=== PATIENT | female | born 1990 | race Caucasian/White ===

== ENCOUNTER 2017-05-12 07:26 | Emergency (ER) | payer OTHER, MEDICAID ==
[~2017-05-12] VITALS: Ht 157.5 cm; Wt 68.5 kg
[2017-05-12 07:31] VITALS: Ht 157.5 cm; Wt 68.5 kg
--- NOTE | 2017-05-12 07:40 | ERD ---
ER Documentation Chief Complaint Date/Time DATE: 05/12/17 TIME: 07:38 Chief Complaint RIGHT HAND PAIN/INJURY HPI 26-year-old female who is right-hand dominant presents with right-sided fourth and fifth metacarpal pain that occurred last night after punching a wall. Patient's pain and swelling is at the lateral aspect of the right hand, she has pain with movement and achy pain that is localized, no pain noted at rest. She denies paresthesias or weakness. ROS All systems reviewed and are negative except as per history of present illness. Allergies Allergies: Coded Allergies: ibuprofen (Verified Allergy, Mild, rash, 05/12/17) PMhx/Soc Medical and Surgical Hx: pt denies Medical Hx History of Surgery: Yes (Tubal ligation, 2) Hx Alcohol Use: No Hx Substance Use: No Hx Tobacco Use: No Physical Exam Vitals Vital Signs Date Time Temp Pulse Resp B/P Pulse Ox O2 Delivery O2 Flow Rate FiO2 05/12/17 07:31 98.1 88 18 106/63 99 Physical Exam General: Well-developed, well-nourished. The patient appears in no acute distress. HEENT: Head is normocephalic, atraumatic. No scleral icterus. Neck: Supple. Nontender. Lungs: Clear to auscultation. Normal air movement. Heart: Regular rate and rhythm. S1 and S2 are normal. No murmurs, gallops, or rubs. Abdomen: Nondistended. Extremities: Patient has swelling at the right fifth metacarpal, she is able to make a fist. She has full range of motion at the DIP, PIP and MCP joints of the right fourth and fifth digits. Capillary refill less than 2 seconds. No tenderness or bony deformities over the wrist, no snuffbox tenderness. Neurologic: Alert and oriented 3. No focal deficits. Normal speech and gait. Skin: Normal turgor. No rash or lesions. Results 24 hrs Current Medications Medications (Trade) Dose Ordered Sig/Jon Route PRN Reason Start Time Stop Time Status Last Admin Dose Admin Acetaminophen (Tylenol Tab) 650 mg ONCE ONCE PO 05/12/17 08:00 05/12/17 08:01 DC 05/12/17 07:47 DIAGNOSTIC IMAGING REPORT Patient: AYAH SALCEDO : 1990 Age: 26 Sex: F MR #: [id number] DOS: 05/12/17 0736 Ordering MD: NICO GALLAGHER PA-C Location: [facility] Room/Bed: PROCEDURE: Right hand series CLINICAL INDICATION: Trauma TECHNIQUE: AP oblique and lateral views of the right hand were obtained. COMPARISON: No prior studies are available for comparison. FINDINGS: There is an acute fracture of the distal right fifth metacarpal bone with dorsal angulation. No evidence of other fracture or dislocation. The bony mineralization is normal. There are no foreign bodies. IMPRESSION: Right fifth distal metacarpal fracture as above. RPTAT:AAJJ Physician Jack Date Time Electronically viewed and signed by Debbie Latham Physician on 05/12/2017 08:07 BM/ CC: NICO GALLAGHER PA-C Procedures/MDM ED course: She was offered pain medication, she requested Tylenol at this time when she was given Tylenol 650 mg for pain. Medical decision making: This 26-year-old female comes in with right hand pain after punching a wall last night, coming in with an acute closed right fifth metacarpal fracture from trauma. No evidence of abrasion, laceration, patient denies hitting anybody. She states that she punched a wall. She is neurovascularly intact. X-rays were reviewed by my attending physician, Dr. Tipton who agrees that she may follow-up outpatient with orthopedics. Patient was advised that she needs follow-up with a hand surgeon. Departure Diagnosis: Primary Impression: Fracture of fifth metacarpal bone Condition: Good NICO GALLAGHER PA-C May 12, 2017 07:40
[2017-05-12] MEDS ORDERED: ACETAMINOPHEN 325 MG TAB PO ONE (08:00)
--- NOTE | 2017-05-12 08:08 | RADRPT ---
PROCEDURE: Right hand series CLINICAL INDICATION: Trauma TECHNIQUE: AP oblique and lateral views of the right hand were obtained. COMPARISON: No prior studies are available for comparison. FINDINGS: There is an acute fracture of the distal right fifth metacarpal bone with dorsal angulation. No gustavo dence of other fracture or dislocation. The bony mineralization is normal. There are no foreign laurie dies. IMPRESSION: Right fifth distal metacarpal fracture as above. RPTAT:AAJJ Physician Jack Date Time Electronically viewed and signed by Debbie Latham Physician on 05/12/2017 08:07 BM/
[2017-05-12] MEDS ORDERED: HYDR-906 PO (08:34)
== END 2017-05-12 08:46 | disposition home or self-care (01) ==
LOC: FTE 07:26
DX: S62.326A Displaced fracture of shaft of fifth metacarpal bone, right hand, initial encounter for closed fracture (principal); W22.8XXA Striking against or struck by other objects, initial encounter; Y92.9 Unspecified place or not applicable

== ENCOUNTER 2018-07-13 16:45 | Outpatient (CLI) | END 2018-07-13 17:15 | disposition home or self-care (01) ==

== ENCOUNTER 2018-07-13 17:23 | Emergency (ER) | END 2018-07-13 19:19 | disposition home or self-care (01) ==

== ENCOUNTER 2018-10-03 16:47 | Inpatient (IN) | payer OTHER ==
[~2018-10-03] VITALS: Ht 165.1 cm; Wt 87.0 kg
[~2018-10-03 16:47] MED LIST: OXYTOCIN 10 UNIT INJ ONE; PREN-93 PO
[2018-10-03] MEDS ORDERED: LACTATED RINGER'S 1,000 ML IV SCH (16:53)
[2018-10-03] MEDS ORDERED: CEFAZOLIN 2 GM/50 ML (PMX) 50 ML IVPB SCH (17:00)
[2018-10-03] MEDS ORDERED: AMPICILLIN 2 GM/NS (PMX) 100 ML IV SCH (17:00)
[2018-10-03] MEDS ORDERED: METHYLERGONOVINE 0.2 MG INJ IM PRN ×2 (17:00→21:30)
[2018-10-03] MEDS ORDERED: CARBOPROST 250 MCG INJ IM PRN ×2 (17:00→21:30)
[2018-10-03] MEDS ORDERED: MISOPROSTOL 200 MCG TAB PR PRN ×2 (17:00→21:30)
[2018-10-03] MEDS ORDERED: OXYTOCIN 30 UNITS/LR 500 ML IV SCH ×2 (17:00→21:16)
[2018-10-03] MEDS ORDERED: OXYTOCIN 30 UNITS/LR 500 ML IV PRN ×2 (17:00→21:30)
[2018-10-03 17:01] VITALS: Ht 165.1 cm; Wt 87.0 kg
[2018-10-03 17:02] VITALS: BP 130/69; PULSE 111; RESP 20
--- NOTE | 2018-10-03 17:14 | TRIAGE ---
OB Triage Datetime Report Generated by CPN: 10/03/2018 17:14 Datetime: 10/03/2018 17:11 Stage of : Labor Assessment Type: Admission Assessment Vaginal Bleeding: None Maternal Assessment Level of Consciousness: Fully Conscious DTR's/Clonus: DTRs 2+; No Clonus Headache: Denies Blurred Vision: No Respiratory Effort: Unlabored; Regular Rhythm; Equal Expansion Breath Sounds, Left: Clear and Equal Breath Sounds, Right: Clear and Equal Nausea/Vomiting: Denies RUQ Epigastric Pain: Denies Facial Edema: None Fall Risk Assessment History of Falling: (0) No Secondary Diagnosis: (0) No Ambulatory Aid: (0) Bedrest/Nurse Assist IV Therapy: (0) No Gait: (0) Normal/Bedrest/Immobile Mental Status: (0) Oriented to Own Ability Fall Score: 0 Fall Risk Score Definition: No Risk: No action required Labor Evaluation Frequency: 2-4 Monitor Mode: External Duration (sec)2399: 50-80 Quality: Mild Pattern: Normal: <= 5 Contractions in 10 Minutes Resting Tone [place]: Relaxed Heart Rate FHR Baseline Rate: 135 Monitor Mode: External US FHR Baseline Changes: No Baseline Change Variability: Moderate 6-25 bpm Accelerations: 15X15 Decelerations: None Category: Category I Pain Assessment Pain Scale: 5 Pain Presence: Intermittent Pain Type: Cramping Pain Location: Abdomen Pain Relief Measures: Comfort Measures Datetime: 10/03/2018 17:07 Time of Arrival: 10/03/2018 16:45 EGA: 36.2 Arrived By: Ambulatory Arrived From: Home Chief Complaint: ucs since 1230 Movement: Present Contractions: Regular Time Contractions Began: 10/03/2018 12:30 Contractions: 3-5 Rupture of Membranes: Denies Vaginal Bleeding: None Vaginal Discharge: Denies Recent Sexual Intercouse: Denies Abdominal Trauma: Not Applicable Patient Complaints: Contractions Initial Plan: efm,call dr haq (on for dr niño) Datetime: 10/03/2018 17:05 Maternal Assessment Level of Consciousness: Fully Conscious DTR's/Clonus: DTRs 2+; No Clonus Headache: Denies Blurred Vision: No Respiratory Effort: Unlabored; Regular Rhythm; Equal Expansion Breath Sounds, Left: Clear and Equal Breath Sounds, Right: Clear and Equal Nausea/Vomiting: Denies RUQ Epigastric Pain: Denies Facial Edema: None Temperature Route: Axillary Fall Risk Assessment History of Falling: (0) No Secondary Diagnosis: (0) No Ambulatory Aid: (0) Bedrest/Nurse Assist IV Therapy: (0) No Gait: (0) Normal/Bedrest/Immobile Mental Status: (0) Oriented to Own Ability Fall Score: 0 Fall Risk Score Definition: No Risk: No action required Datetime: 10/02/2018 20:07 Stage of : OB Triage Datetime: 10/02/2018 19:55 Stage of : OB Triage Datetime: 10/02/2018 19:49 Stage of : OB Triage Datetime: 10/02/2018 18:30 Fall Score: 0 Fall Risk Score Definition: No Risk: No action required Datetime: 10/02/2018 18:29 EGA: 36.1 Datetime: 07/13/2018 17:02 Vaginal Exam Membranes Rupture Method: Artificial Presentation 'A': Cephalic Datetime: 07/13/2018 16:50 EGA: 24.4 Fall Score: 0 Fall Risk Score Definition: No Risk: No action required
--- NOTE | 2018-10-03 17:28 | PREAC ---
Date/Time of Note Date/Time of Note DATE: 10/03/18 TIME: 17:27 Anesthesia Eval and Record Evaluation Time Pre-Procedure Interview DATE: 10/03/18 TIME: 17:27 Age 27 Sex female NPO: Other (3 hrs) Preoperative diagnosis in labor with previous C/S Planned procedure Repeat C/S Past Medical History Past Medical History: None Surgery & Anesthesia Issues No known issue Meds Anticoagulation: No Beta Bartolome within 24 hr: No Reason Beta Bartolome not given: Pt. not on B-Bartolome Reported Medications Vit No.124/Iron/FA ( Vitamin Tablet) 1 Each Tablet, 1 EACH PO DAILY, TAB 10/02/18 Discontinued Scripts Acetaminophen* (Tylophen*) 500 Mg Capsule, 1 CAP PO Q6H PRN for PAIN AND OR ELEVATED TEMP, #20 CAP Prov:PRIYANKA BURRELL MD 07/13/18 Current Medications Lactated Ringer's 1,000 ml @ 125 mls/hr Q8H IV Last administered on 10/03/18at 17:16; Admin Dose 125 MLS/HR; Start 10/03/18 at 16:53 Ampicillin 100 ml @ 100 mls/hr ONCE IV ; Start 10/03/18 at 17:00 Cefazolin Sodium/ Dextrose 50 ml @ 100 mls/hr ONCE IVPB ; Start 10/03/18 at 17:00 Oxytocin/Lactated Ringer's 500 ml @ 125 mls/hr POST IV ; Start 10/03/18 at 17:00 Oxytocin/Lactated Ringer's 500 ml @ 0 mls/hr ONCE PRN IV VAGINAL BLEEDING; Start 10/03/18 at 17:00 Methylergonovine Maleate (Methergine) 0.2 mg ONCE PRN IM VAGINAL BLEEDING; Start 10/03/18 at 17:00 Carboprost Tromethamine (Hemabate) 250 mcg ONCE PRN IM VAGINAL BLEEDING; Start 10/03/18 at 17:00 Misoprostol (Cytotec) 1,000 mcg ONCE PRN IL VAGINAL BLEEDING; Start 10/03/18 at 17:00 Meds reviewed: Yes Allergies Coded Allergies: ibuprofen (Verified Allergy, Mild, rash, 07/13/18) Allergies Reviewed: Yes Labs/Studies Labs Reviewed: Reviewed by anesthesiologist Result Diagram: 10/03/18 1655 Laboratory Tests 12/31/18 16:55 test: Positive Pre-procedure Exam Last vitals Vital Signs Date Temp Pulse Resp B/P (MAP) Pulse Ox O2 O2 Flow FiO2 Time Delivery Rate 10/03/18 98.6 111 20 130/69 Room Air 17:02 (89) Airway: Adequate mouth opening Mallampati: Mallampati II Teeth: Normal Lung: Normal Heart: Normal ASA Physical Status ASA physical status: 2 Emergency: E Planned Anesthetic Neuraxial: Spinal Planned Pain Management Sub-arachniod narcotics Pre-operative Attestations Prior to commencing anesthesia and surgery, the patient was re-evaluated, there was verification of: *The patient's identity *The results of appropriate recent lab work and preoperative vital signs *The above evaluation not changing prior to induction *Anesthetic plan, risk benefits, alternative and complications discussed with patient/family; questions answered; patient/family understands, accepts and wishes to proceed. GIANCARLO GALLAGHER MD Oct 03, 2018 17:28
[2018-10-03] MEDS ORDERED: METOCLOPRAMIDE 10 MG INJ ONE (17:31)
[2018-10-03] MEDS ORDERED: OXYTOCIN 10 UNIT INJ ONE (17:31)
[2018-10-03] MEDS ORDERED: OXYTOCIN 30 UNITS/LR 500 ML IV ONE (17:31)
[2018-10-03] MEDS ORDERED: ONDANSETRON 4 MG INJ ONE (17:31)
[2018-10-03] MEDS ORDERED: morphine SULFATE/PF (10 MG/10 ML) INJ ONE (17:31)
[2018-10-03] MEDS ORDERED: EPHEDrine 25 MG/5 ML SYG ONE (18:09)
--- NOTE | 2018-10-03 18:26 | HP ---
Date/Time of Note Date/Time of Note DATE: 10/03/18 TIME: 18:25 OB - History Hx of Present Free Text/Dictation 36+ : 7 Para: 2 Care: Good Care Ultrasounds: Normal mid trimester US Obstetrical Complications: None Medical Complications: None Past Family/Social History * Past Medical, Surgical, Family and Obstetric Histories reviewed from chart. OB Admission Exam Vital Signs Vital Signs Vital Signs Date Temp Pulse Resp B/P (MAP) Pulse Ox O2 O2 Flow FiO2 Time Delivery Rate 10/03/18 98.6 111 20 130/69 Room Air 17:02 (89) Physical Exam Abdomen: WNL Cervical Dilatation: 5cm Effacement: 75% Station: -1 Membranes: Intact Heart Rate: 140's Accelerations: Accelerations Present Decelerations: No Decelerations Varibility: Moderate Contractions on Admission: < 5 Minutes Apart Last 72 hours Lab Results CBC & BMP 10/03/18 16:55 OB Assessment/Plan Reason for admission: observation Other Assessment: PMH Denies PSH 2 previous c/section Allergies NKDA Plan: Section MAUDE ROLON M.D. Oct 03, 2018 18:26
--- NOTE | 2018-10-03 18:29 | QN ---
Documentation Comment patient with history of two previous c/s in labor cx 5cm dilated 36+wks ,second call is called at 4;50PM MAUDE ROLON M.D. Oct 03, 2018 18:29
--- NOTE | 2018-10-03 18:30 | OPPN ---
Date/Time of Note Date/Time of Note DATE: 10/03/18 TIME: 18:29 Operative Report Planned Procedure Procedure date Oct 03, 2018 Procedure(s) Repeat c/section Performed by see signature line Paper Pattern Folder: CAROLYNN EUGENE MD 2nd Paper Pattern Folder none Pre-procedure diagnosis Previous c/s x 2 Labor [id number] Anesthesia Type: [id number] spinal Post-Procedure Post-procedure diagnosis same Findings Live Baby [], Apgars [] and [], weight [], position [], [] presentation []cord. Estimated Blood Loss: 500 - 600 mls Specimen(s) none Grafts/Implant(s) none Complication(s) none MAUDE ROLON M.D. Oct 03, 2018 18:30
[2018-10-03] MEDS ORDERED: KETOROLAC 30 MG INJ ONE (18:36)
[2018-10-03] MEDS ORDERED: EPHEDrine SULFATE 50 MG/5 ML SYG IV PRN (19:00)
[2018-10-03] MEDS ORDERED: morphine 2 MG INJ IV PRN ×2 (19:00)
[2018-10-03] MEDS ORDERED: NALOXONE (0.4 MG/ML) INJ IV PRN (19:00)
[2018-10-03] MEDS ORDERED: morphine SULFATE/PF (10 MG/10 ML) INJ SPINAL ONE (19:00)
[2018-10-03] MEDS ORDERED: DIPHENHYDRAMINE 50 MG INJ IV PRN (19:00)
[2018-10-03] MEDS ORDERED: ONDANSETRON 4 MG INJ IV PRN (19:00)
[2018-10-03] MEDS ORDERED: KETOROLAC 30 MG INJ IV PRN ×3 (19:00→22:30)
--- NOTE | 2018-10-03 19:02 | PAC ---
Date/Time of Note Date/Time of Note DATE: 10/03/18 TIME: 19:02 Post-Anesthesia Notes Post-Anesthesia Note Last documented vital signs Vital Signs Date Temp Pulse Resp B/P (MAP) Pulse Ox O2 O2 Flow FiO2 Time Delivery Rate 10/03/18 98.6 111 20 130/69 Room Air 17:02 (89) Activity: WNL Respiratory function: WNL Cardiovascular function: WNL Mental status: Baseline Pain reasonably controlled: Yes Hydration appropriate: Yes Nausea/Vomiting absent: Yes GIANCARLO GALLAGHER MD Oct 03, 2018 19:02
[2018-10-03 21:00] VITALS: BP 122/66; PULSE 86; RESP 20
--- NOTE | 2018-10-03 21:27 | OPR ---
DATE OF OPERATION: 10/03/2018 PREOPERATIVE DIAGNOSES: 1. 36+ weeks' gestational age. 2. History of 2 previous sections. 3. In labor. POSTOPERATIVE DIAGNOSES: 1. 36+ weeks' gestational age. 2. History of 2 previous sections. 3. In labor. OPERATION PERFORMED: Repeat section. ATTENDING SURGEON: Waqas Rolon MD RESEARCH/PROGRAM DIRECTOR: Priyanka Mejía MD TYPE OF ANESTHESIA: Spinal. COMPLICATIONS: None. ESTIMATED BLOOD LOSS: 600 mL. TECHNIQUE: The patient was taken to the operating room where the spinal anesthesia was found to be a dequate. The patient was placed in supine position. After prep and drape, a Pfannenstiel incision w as made above the previous scar. Previous scar was removed. Incision was extended to the underlying fascia. Fascia was nicked in the midline. Fascial incision was extended bilaterally. Fascia was s eparated from underlying muscles. Muscles were in the midline. Peritoneum was entered sha rply. Peritoneal incision was extended. Bladder blade was placed inside the abdominal cavity. Lowe r uterine segment incision was made. Baby was delivered vertex, handed to the NICU team. Cord blood sent. Placenta was removed manually. Uterus was exteriorized. Intrauterine cavity was cleaned usi ng 2 sponges. Lower uterine segment incision was closed in 1 layer using 0 looped PDS sutures. Uter us was inserted inside the abdominal cavity. Gutters were cleaned. Peritoneum and muscle were reapp roximated using 2-0 chromic sutures. Fascia was closed in a running nonlocking fashion using 0 loope d PDS sutures. Subcutaneous tissue was closed. The skin was closed using Insorb, and Dermabond was placed on top of the incision. The patient tolerated the procedure well and was transferred to [facility] in stable condition. There was no complication regarding this surgery. Dictated By: WAQAS ROLON MD RG/NTS Conf#: [id number] DID#: [id number] CC: PRIYANKA MEJÍA MD; VIVIAN JOYNER MD;*End*
[2018-10-03] MEDS ORDERED: LANOLIN HPA 1 PKT TOP PRN (21:30)
[2018-10-03] MEDS ORDERED: NACL 0.9% 3 ML SYG IV SCH (21:30)
[2018-10-03 22:03] VITALS: BP 116/57; PULSE 94; RESP 20
--- NOTE | 2018-10-03 22:17 | NUR ---
I SPOKE TO THE PHARMACIST AND HE STATES THAT THERE IS A NOTE BY THE PREVIOUS PHARMACIST AT [address] PRASAD THAT THE PT IS ABLE TO HAVE TORODOL EVEN THOUGH SHE HAS AN IBUPROFEN ALLERGY.
[2018-10-04] MEDS ORDERED: IBUPROFEN 600 MG TAB PO SCH
[2018-10-04 01:03] VITALS: BP 109/58; PULSE 97; RESP 16
[2018-10-04 03:52] VITALS: BP 104/53; PULSE 91; RESP 19
--- NOTE | 2018-10-04 05:45 | NUR ---
EOSS: PT STABLE AT THIS TIME, BONDING WELL WITH BABY. PAIN IS WELL CONTROLLED, BLEEDING IS SCANT, AND VOIDING WELL. HOURLY ROUNDING MAINTAINED THROUGHOUT SHIFT.
[2018-10-04] MEDS: KETOROLAC 30 MG INJ IV PRN ×3 (06:03→16:43)
--- NOTE | 2018-10-04 06:42 | NUR ---
RN ASSISTED PT OUT OF BED TO ATTEMPT TO WALK TO THE BATHROOM PER MD ORDERS, BUT SHE WAS FEELING LIGHTHEADED WHEN SHE STOOD UP, SO I HELPED HER BACK TO BED AND GAVE HER SOME JUICE. PULSE OX IS 93-95% ON ROOM AIR AND PT STATES SHE FEELS BETTER BEING BACK IN BED. RN TO CONTINUE TO MONITOR AND ALLOW PT TO REST BEFORE GETTING OUT OF BED AGAIN.
--- NOTE | 2018-10-04 06:59 | NUR ---
PT DRANK 1/2 THE PITCHER OF JUICE. SHE STATES SHE NO LONGER FEELS LIGHTHEADED OR DIZZY AND DOES NOT FEEL ANY DIFFICULTY BREATHING. ALSO, URINE OUTPUT IS SHOWING MORE VOLUME.
[2018-10-04 08:15] VITALS: BP 99/49; PULSE 84; RESP 18
[2018-10-04] MEDS: PRENATAL VITAMIN PO SCH (09:00)
[2018-10-04] MEDS: SENNA/DOCUSATE NA (8.6MG/50MG) TAB PO SCH ×2 (09:00→21:30)
--- NOTE | 2018-10-04 09:40 | NUR ---
RN AT BEDSIDE ASSESSMENT AND PERICARE DONE. PT. HAS HX. OF ABDOMINAL HERNIA BUT STATES INCISIONAL PAIN IS ACCEPTABLE AT THIS TIME 1-3/10 W/ MOVEMENT. SCD'S CONT. , ENCOURAGE PT. TO DANGLE AND UP OUT OF BED. PT. STABLE AT THIS TIME
[2018-10-04] MEDS ORDERED: INFLUENZA VIRUS VACCINE 0.5 ML (DISPENSING) IM* ONE (10:00)
--- NOTE | 2018-10-04 11:16 | QN ---
Documentation Comment POD# 1 is stable No VB +Flatus +Adequate urine VS stable Gen NAD Abd soft NT ND Genitalia No blood at perineum --->Ambulation MAUDE ROLON M.D. Oct 04, 2018 11:16
[2018-10-04 11:19] VITALS: BP 99/54; PULSE 87; RESP 20
--- NOTE | 2018-10-04 15:26 | OPPN ---
Date/Time of Note Date/Time of Note DATE: 10/04/18 TIME: 15:21 Anesthesia Follow up Anesthesia Follow up Last documented vital signs Vital Signs Date Temp Pulse Resp B/P (MAP) Pulse Ox O2 O2 Flow FiO2 Time Delivery Rate 10/04/18 87 20 99/54 (69) 97 Room Air 11:19 10/04/18 98.2 08:15 Respiratory function: WNL Cardiovascular function: WNL Comments Postoperative pain in good control with spinal duramorph with intermittent use of oral pain medicine. No headache or other specific complaints. GIANCARLO GALLAGHER MD Oct 04, 2018 15:26
--- NOTE | 2018-10-04 16:12 | NUR ---
pt. asked for pain meds. for breakthrough pain and given. f/c draining yellow urine. pericare done and small amount of non odorous lochia noted. pt. has sensation in lower extremities and can bend at knees bilaterally and lift hips up. pt. on demand w/ some formula supplementation per mothers request from previous p.m. shift. dressing D&I.
[2018-10-04 20:00] VITALS: BP 94/50; PULSE 91; RESP 18
[2018-10-04 21:00] VITALS: BP 111/54; PULSE 95; RESP 18
[2018-10-04] MEDS: OXYCODONE/ACETAMINOPHEN (5/325) TAB PO PRN (23:17)
[2018-10-05] VITALS: BP 101/59; PULSE 71; RESP 16
[2018-10-05 04:00] VITALS: BP 101/56; PULSE 83; RESP 20
--- NOTE | 2018-10-05 07:02 | NUR ---
EOSS: VSS. HEAVY BLEEDING AT 2000. METHERGINE 0.2 MG IM GIVEN TO PT. BLEEDING MODERATE REST OF SHIFT. PT BREAST AND BOTTLE FEEDING. BONDING WELL WITH BABY.
[2018-10-05 08:00] VITALS: BP 89/50; PULSE 83; RESP 16
[2018-10-05] MEDS: OXYCODONE/ACETAMINOPHEN (5/325) TAB PO PRN ×3 (08:02→18:14)
[2018-10-05] MEDS: SENNA/DOCUSATE NA (8.6MG/50MG) TAB PO SCH ×2 (10:58→20:52)
[2018-10-05] MEDS: PRENATAL VITAMIN PO SCH (10:58)
--- NOTE | 2018-10-05 11:59 | NUR ---
INCISIONAL BANDAGE REMOVED, DERMABOND TO INCISION . CLEAN DRY AND INTACT
--- NOTE | 2018-10-05 14:54 | PN ---
Date/Time of Note Date/Time of Note DATE: 10/05/18 TIME: 14:52 OB Subjective Subjective Subjective POD#2 Patient is doing well. She denies nausea, vomiting, shortness of breath, chest pain, headache. She has been ambulating without difficulty, tolerating regular diet. Pain is well controlled on current medications OB Objective Objective Objective Vital Signs Date Temp Pulse Resp B/P (MAP) Pulse Ox O2 O2 Flow FiO2 Time Delivery Rate 10/05/18 98.7 83 16 89/50 (63) Room Air 08:00 10/04/18 97 11:19 General: AAO X 3, comfortable, NAD, appropriate mood and affect. ABD: +BS. Soft, non-tender. Uterus 2 cm below umbilicus Incision: Clear, dry, intact. No erythema, drainage or induration. Flank: No CVA tenderness (B/L) LE: Mild edema. No clubbing, cyanosis, thigh or calf tenderness (B/L). Homans 'sign is negative OB Assessment/Plan Other plan: 27 years old s/p delivery POD#2 - AF, VSS - Baby is doing well, at bed side. She is bonding well - Continue care TESS GARCIA Oct 05, 2018 14:54
--- NOTE | 2018-10-05 14:58 | QN ---
Documentation Comment patient seen and evaluated patient complains of occasional lightheaded while walking or getting up tolerating regular diet, no bowel movement vs stable afebrile ab c/d/i mild distention extremity no edema no calf tenderness a/ sp cd pod 2 p/ repeat cbc VIVIAN JOYNER MD Oct 05, 2018 14:58
[2018-10-05] MEDS ORDERED: BISACODYL 10 MG SUPP PR ONE (17:00)
--- NOTE | 2018-10-05 19:01 | NUR ---
EOSS CONDITION IS STABLE. MOM CONTINUES TO HAVE A FLAT AFFECT AND LITTLE EYE CONTACT. NOT PASSING GAS AND NEEDS TO WALK MORE IN THE HALLWAY. INCISIONAL BANDAGE REMOVED, DERMABOND IN PLACE. DECLINDED DULCOLAX SUPPOSITY FOR NOW
[2018-10-05 20:15] VITALS: BP 105/58; PULSE 83; RESP 18
[2018-10-06 04:20] VITALS: BP 109/60; PULSE 88; RESP 18
[2018-10-06] MEDS ORDERED: BISACODYL 10 MG SUPP PR ONE (04:40)
[2018-10-06] MEDS: OXYCODONE/ACETAMINOPHEN (5/325) TAB PO PRN ×3 (04:43→17:28)
--- NOTE | 2018-10-06 05:59 | NUR ---
EOSS: Pt is in stable condition. No distress noted. Up and walking. Offered Dulcolax Supp 2 times, pt refused. Fundus firm with small amount lochia. Bonding well and bottle feeding baby.
[2018-10-06 08:05] VITALS: BP 112/57; PULSE 75; RESP 18
[2018-10-06] MEDS ORDERED: DIPHTH/TET/ACEL PERTUSS (ADULT) 0.5 ML VIAL IM* ONE (09:00)
[2018-10-06] MEDS: PRENATAL VITAMIN PO SCH (09:37)
[2018-10-06] MEDS: SENNA/DOCUSATE NA (8.6MG/50MG) TAB PO SCH ×2 (09:37→21:52)
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
[2018-10-06 15:50] VITALS: BP 109/69; PULSE 74; RESP 19
--- NOTE | 2018-10-06 17:26 | PD.PPDC ---
CAREER SERVICES MANAGER Discharge Instruction Condition Awrzk4Gh Patient Condition: Bjpyt0h Fair Diet Tlfej0Eg Diet: Igczl3m Resume Regular Diet Activity/Restrictions Glabx7Qb Activity: Tjsnl0l Normal Activity May Shower Fhmgn0Sl Restrictions: Ztdhn8e No Exercising No Lifting No Driving No Sexual Activity Nothing in the Vagina No [place] No Tampons, douche Follow-up Follow-up with Physician: 1, Week/Weeks Return to clinic for Flbqx9Po TOPOGRAPHICAL DRAFTER Instructions: Cizvi2c Fever greater than 101 Chills Worsening abdominal pain Excessive Vaginal Bleeding More than 2 pads per hour Unable to tolerate diet Omodf0Xn OB Instructions: Gpqgc1q Breast Tenderness Depression Blurried Vision Headache Wekcu5Op Surgical Instructions: Ziqxq8f Incisional Drainage Incisional Redness VIVIAN JOYNER MD Oct 06, 2018 17:26
--- NOTE | 2018-10-06 19:23 | NUR ---
EOSS: VS WNL, PATIENT VOIDED, NO BM YET, AMBULATED IN THE HALLWAY, BONDING WELL WITH BABY. D/C ORDER FOR TOMORROW.
[2018-10-06 20:20] VITALS: BP 105/55; PULSE 78; RESP 18
--- NOTE | 2018-10-06 21:20 | NUR ---
Patient walking in the [address], accompanied with the FOB
--- NOTE | 2018-10-06 21:29 | NUR ---
DR Batista called back from MD Lynne bradford ordered double photo tx and, Bilirubin in am, and supplement with formula Addendum: 10/06/18 at 2132 by KALIE DIXON RN wrong Patient by mistake
[2018-10-07] MEDS: OXYCODONE/ACETAMINOPHEN (5/325) TAB PO PRN ×2 (00:47→10:36)
--- NOTE | 2018-10-07 03:58 | DS ---
DATE OF ADMISSION: 10/03/2018 DATE OF DISCHARGE: PRIMARY DIAGNOSIS: Intrauterine at 36+ weeks gestational age, history of 2 previous C-sect ions, in labor. PROCEDURE: Repeat low transverse delivery. CONDITION ON DISCHARGE: Stable. ACTIVITY: None per vagina, no heavy lifting for 6 weeks. DIET: Regular. MEDICATIONS ON DISCHARGE: 1. Motrin. 2. Iron. 3. Colace. DISCHARGE SUMMARY: The patient underwent a repeat delivery on 10/03/2018. She had an uneve ntful postop day 1, 2, and 3. She will be discharged on postop day 4. Her incision is clean, dry, a nd intact. She is ambulating and tolerating diet, positive flatulence, positive bowel movement. She will follow up in the clinic in 1 week for /postop care. Dictated By: VIVIAN BORJA/TANJA Conf#: [id number] DID#: [id number]
[2018-10-07 04:15] VITALS: BP 109/58; PULSE 68; RESP 18
[2018-10-07 04:25] VITALS: BP 109/58; PULSE 68; RESP 18
--- NOTE | 2018-10-07 05:14 | NUR ---
EOSS; Patient enableto take careself and the ,vital signs stable, may going home today
[2018-10-07 08:00] VITALS: BP 113/56; PULSE 73; RESP 19
[2018-10-07] MEDS ORDERED: BISACODYL 10 MG SUPP PR ONE (08:30)
[2018-10-07] MEDS: SENNA/DOCUSATE NA (8.6MG/50MG) TAB PO SCH (09:23)
[2018-10-07] MEDS: PRENATAL VITAMIN PO SCH (09:23)
--- NOTE | 2018-10-07 09:25 | NUR ---
PT C/O CONSTIPATION , DULCOLAX SUPP GIVEN ORDERED.
--- NOTE | 2018-10-07 10:30 | NUR ---
PT IS IN STABLE CONDITION , VERBALIZES THAT SHE HAD BM.
--- NOTE | 2018-10-07 11:40 | NUR ---
PT D/C HOME WITH THE BABY IN STABLE CONDITION , D/C CARE INSTRUCTION GIVEN AND INSTRUCTED TO FOLLOW UP IN THE CLINIC IN 1 WEEK AND CALL CLINIC FOR FOLLOW UP APPOINTMENT. PT VERBALIZED UNDERSTANDING.
== END 2018-10-07 11:40 | disposition home or self-care (01) | DRG 788 ==
LOC: OBT 16:47 → L-D 16:48 → PP1 20:54
PROVIDERS: ADMIT Obstetrics & Gynecology; ATTEND Obstetrics & Gynecology
PROC: 10D00Z1 Extraction of Products of Conception, Low, Open Approach (ICD-10-PCS; principal; 2018-10-03)
DX: O34.219 Maternal care for unspecified type scar from previous cesarean delivery (principal); G89.18 Other acute postprocedural pain; R42 Dizziness and giddiness; Z3A.36 36 weeks gestation of pregnancy; Z37.0 Single live birth; Z23 Encounter for immunization
CPT/HCPCS: 80307; 81001; 85025; 85610; 85730; 86592; 86703; 86762; 86850; 86900; 86901; 87340; 90715; 99464; G0463; J0690; J1200; J1885; J2210; J2270; J2274; J2405; J2590; J2765; J7120